=== PATIENT | male | born 1995 | race African-American/Black ===

== ENCOUNTER 2018-05-29 11:52 | Emergency (ER) | payer MEDICAID ==
[~2018-05-29] VITALS: Ht 165.1 cm; Wt 57.0 kg
[~2018-05-29 11:52] MED LIST: MAGN800O; POLY15DR12
[2018-05-29] MEDS ORDERED: LIDOCAINE HCL/PF 1% 10 MG/ML 5ML VIAL IJ ONE (19:00)
[2018-05-29] MEDS ORDERED: LIDOCAINE 1%/EPI 1:100,000 10 ML VIAL IJ ONE (19:00)
[2018-05-29] MEDS ORDERED: MIDAZOLAM HCL 2 MG/2 ML VIAL IM ONE (19:00)
[2018-05-29 20:55] VITALS: BP 0/0
== END 2018-05-29 22:10 | disposition home or self-care (01) ==
LOC: ER 11:52
DX: L02.412 Cutaneous abscess of left axilla (principal); R62.59 Other lack of expected normal physiological development in childhood
CPT/HCPCS: 10060; 96372; 99283; J2250; J3490

== ENCOUNTER 2021-02-24 17:03 | Emergency (ER) | payer MEDICAID ==
[~2021-02-24] VITALS: Ht 165.1 cm; Wt 50.0 kg
[2021-02-24 20:20] VITALS: BP 118/80
== END 2021-02-24 20:38 | disposition home or self-care (01) ==
LOC: ER 17:03
DX: R11.2 Nausea with vomiting, unspecified (principal)
CPT/HCPCS: 99281